=== PATIENT | male | born 1950 | race Caucasian/White ===

== ENCOUNTER 2017-08-31 04:28 | Emergency (ER) | payer MEDICARE, OTHER | END 2017-08-31 06:56 | disposition home or self-care (01) | LOC: FTE 04:28 | DX: H61.23 Impacted cerumen, bilateral (principal); H93.13 Tinnitus, bilateral; F17.210 Nicotine dependence, cigarettes, uncomplicated | CPT/HCPCS: 69209; 99283-25 ==